=== PATIENT | female | born 1980 | race Caucasian/White ===

== ENCOUNTER 2018-08-01 08:36 | Emergency (ER) | payer OTHER ==
[2018-08-01 08:56] VITALS: BP 126/87
--- NOTE | 2018-08-01 09:06 | EDPHY ---
H & P Time Seen by Provider: 08/01/18 08:55 HPI/ROS: HPI Concerned about scabies. 37-year-old female by private vehicle. 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 There has been a scabies outbreak at the facilities. The patient noticed a rash on her left ventral proximal forearm this morning. She was concerned this might be scabies. She reports that it has gotten significantly better since this morning. She presents to the emergency department to have this evaluated. ROS: Constitutional: No fever, no chills. No weakness. Musculoskeletal: No myalgias or arthralgias. Skin: As above. Neurological: No focal weakness or altered sensation. Past medical history: IUD in place. No other significant past medical history. Social history: Nonsmoker. No alcohol. Here by herself. As above. Physical Exam: General Appearance: Alert, no distress. This patient is responding to questions appropriately and in full sentences. This patient appears well- hydrated and well-nourished. Eyes: Pupils equal and round no pallor or injection. No lid edema, erythema or injection. Neurological: Motor sensory function is grossly intact. Cranial nerves are normal. Gait is normal. Skin: Warm and dry, very faint, blanching, erythematous rash, localized to ventral aspect of proximal left forearm just distal to the antecubital fossa it is not raised. No petechiae. It involves a patch of skin measuring approximately 1 cm x 3 cm. It is very faint in appearance and hardly appreciable. It is not consistent with scabies. The left upper extremity is neurovascularly intact. Extremities are symmetrical. All joints range without pain or impingement. Psychiatric: No agitation. No depression. Database: EKG: Imaging: Procedures: Emergency department course: Triage vital signs reviewed and are normal. After evaluation of the patient's rash. I explained to her that the rash was not consistent with scabies or other pathology requiring immediate treatment. She tells me that it has gotten a lot better. She feels comfortable going home. I feel she is safe for discharge. I have asked her to watch it closely and to return if it worsens. I explained should completely resolve over the next 12-24 hours. She feels comfortable with this plan. Follow-up and return to emergency department precautions discussed. All of her questions were answered. She was discharged from the emergency department in good condition. Differential Diagnosis: The differential diagnosis on this patient includes but is not limited to localized contact dermatitis. Scabies, cellulitis, gonococcus, varicella unlikely. This represents a partial list of diagnoses considered. These considerations are based on history, physical exam, past history, reassessment and diagnostic testing. Smoking Status: Never smoked Constitutional: Initial Vital Signs Temperature (C) 36.6 C 08/01/18 08:50 Heart Rate 61 08/01/18 08:50 Respiratory Rate 16 08/01/18 08:50 Blood Pressure 126/87 H 08/01/18 08:50 O2 Sat (%) 98 08/01/18 08:50 O2 Delivery Mode Room Air Allergies/Adverse Reactions: No Known Allergies Allergy (Unverified 08/01/18 08:50) Home Medications: Medication Instructions Recorded NK [No Known Home Meds] 08/01/18 Departure - Departure Disposition: Home, Routine, Self-Care Clinical Impression: Contact dermatitis, Rash Condition: Good Instructions: Contact Dermatitis (ED) Additional Instructions: Read and follow provided instructions. Follow-up with your primary care physician in 2-3 days for re-evaluation. Return to the emergency department for worsening rash or other serious concerns. Referrals: NONE *PRIMARY CARE P,. [Primary Care Provider] - As per Instructions
== END 2018-08-01 09:15 | disposition home or self-care (01) ==
LOC: CED 08:36
DX: L25.9 Unspecified contact dermatitis, unspecified cause (principal); Z20.7 Contact with and (suspected) exposure to pediculosis, acariasis and other infestations; Y99.0 Civilian activity done for income or pay; Z97.5 Presence of (intrauterine) contraceptive device
CPT/HCPCS: 99282-ER